=== PATIENT | male | born 1965 | race Caucasian/White ===

== ENCOUNTER → 2021-05-19 | Day surgery (SDC) | payer MEDICARE, OTHER ==
[~2021-05-19] MED LIST: AMLODIPINE BESYL5 MG PO; CITROMA296 ML PO; COLACE100 MG PO; DEPAKOTE500 MG PO; DITROPAN 5 MG TA5 MG PO; FISH OIL 1,0001 EAC1 PO; FLEET ENEMA133 ML PR; GLUCOPHAGE 500500 MG PO; HALOPERIDOL10 MG PO; HYDROCORT-PRAMO30 G1 PR; IBU-200200 MG PO; LEVEMIR IN100 UNITS/ SQ; LISINOPRIL5 MG PO; LOPERAMIDE2 M1 PO; MAGNESIUM OXID400 M1 PO; METOPROLOL TART25 MG PO; NITROSTAT 0.40.4 MG SL; PAXIL40 MG PO; PRILOSEC OTC20 MG PO; SENOKOT8.6 MG PO; SEROQUEL400 MG PO; TRADJENTA5 MG PO; TYLENOL325 M1 PO; VAZALORE325 MG PO
== END | disposition home or self-care (01) ==
LOC: OR 07:19
DX: K21.00 Gastro-esophageal reflux disease with esophagitis, without bleeding (principal); Z12.11 Encounter for screening for malignant neoplasm of colon; K31.7 Polyp of stomach and duodenum; K29.70 Gastritis, unspecified, without bleeding; E66.9 Obesity, unspecified; K31.9 Disease of stomach and duodenum, unspecified; E11.9 Type 2 diabetes mellitus without complications; E78.5 Hyperlipidemia, unspecified; I10 Essential (primary) hypertension; Z79.82 Long term (current) use of aspirin; Z79.4 Long term (current) use of insulin; Z79.84 Long term (current) use of oral hypoglycemic drugs; Z20.822 Contact with and (suspected) exposure to COVID-19
CPT/HCPCS: 43239; G0121; 82962; J2704; J7040

== ENCOUNTER → 2021-05-25 | Outpatient (CLI) | payer MEDICARE, OTHER | LOC: HEART 5 10:20 | DX: J44.9 Chronic obstructive pulmonary disease, unspecified (principal); I51.7 Cardiomegaly | CPT/HCPCS: 71046; 94060 ==

== ENCOUNTER → 2021-06-08 | Outpatient (CLI) | payer MEDICARE, OTHER | LOC: HEART 5 14:22 | DX: R06.02 Shortness of breath (principal) | CPT/HCPCS: 93306 ==

== ENCOUNTER → 2021-08-28 | Outpatient (CLI) | payer MEDICARE, OTHER | LOC: KOH-I 09:59 | DX: R93.2 Abnormal findings on diagnostic imaging of liver and biliary tract (principal) | CPT/HCPCS: 76705 ==